=== PATIENT | male | born 1995 ===

== ENCOUNTER 2021-02-06 13:48 | Emergency (ER) | payer SELFPAY ==
[2021-02-06] MEDS ORDERED: Pantoprazole 40 MG VIAL ONE (15:41)
[2021-02-06] MEDS ORDERED: Mag-Al Plus 1200 MG/1200 MG/120 MG/30 ML UDCUP ONE (15:55)
[2021-02-06] MEDS ORDERED: Lidocaine Viscous Sol 2% 15 ml UD Cup ONE (15:55)
[2021-02-06 16:16] LABS: #Eosinphils 0.1 10x3/uL (0.0-0.5); #Monocytes 0.6 10x3/uL (0.0-1.1); #Neutrophils 4.8 10x3/uL (1.5-8.4); %Basophils 0.6 % (0.0-2.0); %Eosinophils 1.6 % (0.0-6.0); %Lymphocytes 20.9 % (18.0-47.0); %Monocytes 8.6 % (0.0-10.0); %Neutrophils 67.9 % (40.0-75.0); Hemoglobin 14.5 g/dL (13.5-17.5); Mean Corpuscular HGB CONC 33.9 g/dL (32.0-36.0); Mean Corpuscular Hemoglobin 31.7 pg (27.0-33.0); Mean Corpuscular Volume 93.4 fl (81.2-95.1); Platelet Count 245 10x3/uL (150-450); RBC Distribution Width 12.4 % (11.5-14.5); Red Blood Cell (RBC) Count 4.58 10x6/uL (4.32-5.72)
[2021-02-06 16:20] LABS: ALT (SGPT) 16 U/L (8-55); AST (SGOT) 15 U/L (5-34); Albumin 4.6 g/dL (3.5-5.0); Alkaline Phosphatase 62 U/L (40-110); Anion Gap 13 mmol/L (10-20); BUN (Urea Nitrogen) 9 mg/dL (8.9-20.6); Bilirubin, Total 0.7 mg/dL (0.2-1.2); Calc. Creatinine Clearance 0 mL/min (70-130); Calcium 9.8 mg/dL (7.8-10.44); Carbon Dioxide 27 mmol/L (22-29); Chloride 106 mmol/L (98-107); Globulin 2.8 g/dL (2.4-3.5); Glucose 77 mg/dL (70-105); Lipase 39 U/L (8-78); Potassium 4.4 mmol/L (3.5-5.1); Protein, Total 7.4 g/dL (6.0-8.3); Sodium 142 mmol/L (136-145)
== END 2021-02-06 16:55 | disposition home or self-care (01) ==
LOC: CSHERS 13:48
DX: R10.13 Epigastric pain (principal)
CPT/HCPCS: 80053; 83690; 85025; 86677; 96374; C9113